=== PATIENT | male | born 2000 | race African-American/Black ===

== ENCOUNTER 2024-08-26 05:43 | Emergency (ER) | payer OTHER ==
[~2024-08-26] VITALS: Ht 177.8 cm; Wt 77.3 kg
[2024-08-26 05:46] VITALS: TEMP 99.5
[2024-08-26] MEDS: IBUPROFEN 600 MG TABLET PO ONE (06:45)
[2024-08-26] MEDS: SULFAMETHOX/TRIMETH DS 800-160 MG/TABLET PO ONE (06:45)
[2024-08-26] MEDS: CEPHALEXIN MONOHYDRATE 500 MG CAPSULE PO ONE (06:46)
[2024-08-26] MEDS ORDERED: IBUP-1492 PO (06:54)
[2024-08-26] MEDS ORDERED: SULF-261 PO (06:54)
[2024-08-26] MEDS ORDERED: ACET-3385 PO (06:54)
[2024-08-26] MEDS ORDERED: CEPH-558 PO (06:54)
[2024-08-26 07:02] VITALS: BP 130/78; PULSE 93; RESP 18; O2SAT 98
== END 2024-08-26 07:05 | disposition home or self-care (01) ==
LOC: EMS 05:45
DX: L03.211 Cellulitis of face (principal); F12.90 Cannabis use, unspecified, uncomplicated; Z91.199 Patient's noncompliance with other medical treatment and regimen due to unspecified reason
CPT/HCPCS: 99284; Z7502; Z7610